=== PATIENT | female | born 1965 | race Caucasian/White ===

== ENCOUNTER 2021-06-29 12:58 | Outpatient (RCR) | payer BC, SELFPAY | END 2021-08-03 23:59 | LOC: IMMUN 12:58 | PROVIDERS: PCP Family Medicine; Referring Provider Family Medicine; Visit Provider Family Medicine | DX: Z23 Encounter for immunization (principal) ==

== ENCOUNTER 2022-01-11 16:11 | Outpatient (CLI) | payer BC, SELFPAY ==
--- NOTE | 2022-01-11 16:20 | RAD_ITS ---
STUDY: X-RAY - CERVICAL SPINE REASON FOR EXAM: Female, 56 years old. A lump in throat. TECHNIQUE: 3 view(s) of the cervical spine were obtained. COMPARISON: None FINDINGS: Normal anterior atlantoaxial articulation. Normal odontoid process. Normal cervical lordosis. Mild diffuse uncovertebral and facet sclerosis. Normal disc space heights. The soft tissue structures are unremarkable. RAD/Cerv Spine 2 or 3 Views IMPRESSION: Mild diffuse uncovertebral and facet sclerosis. No osseous or soft tissue abnormality identified. Electronically Signed: Michel Cisneros MD at 9:58 EST ,
[2022-01-11 17:04] LABS: Absolute Lymphocyte Count 3.25 X10^3/uL (0.83-4.51); Basophil# 0.05 X10^3/uL; Basophil% 0.7 % (0-1); Eosinophil# 0.24 X10^3/uL; Eosinophils% 3.4 % (0-5); Hematocrit 44.9 % (37-47); Hemoglobin 14.6 g/dL (12.0-15.0); Lymphocyte # 3.25 X10^3/ul (0.83-4.51); Lymphocyte % 45.6 % (19-41); Mean Corp Hgb Conc 32.5 g/dL (32-36); Mean Corpuscular Hgb 31.3 pg (27.0-32.0); Mean Corpuscular Volume 96.1 fL (81-99); Mean Platelet Vol. 11.5 fl (6.2-12.0); Monocyte% 8.4 % (0-10); NRBC Flagged by Analyzer 0 % (0-5); Neutrophil # 2.96 X10^3/uL (2.7-7.7); Neutrophil % 41.6 % (47-70); Platelet Count 227 K/mm3 (150-450); RBC Distribution Width CV 13.2 % (11.6-14.6); RBC Distribution Width SD 46.4 fl (35.1-43.9); Red Blood Count 4.67 M/mm3 (4.2-5.4); White Blood Count 7.1 K/mm3 (4.4-11.0)
[2022-01-11 17:33] LABS: Erythrocyte Sedimentation Rate 11 mm/hr (0-30)
[2022-01-11 18:00] LABS: ALB/GLOB Ratio 0.9 RATIO (0.9-2.4); AST(SGOT) 16 U/L (15-37); Alanine Aminotransfer ALT/SGPT 31 U/L (13-56); Albumin, Serum 3.7 g/dL (3.2-5.0); Alkaline Phosphatase 217 U/L (45-117); Anion Gap 3 (5-15); BUN 14 mg/dL (7-18); BUN/Creat Ratio 15.8 RATIO (10-20); CRP 3.47 mg/L (0.0-3.0); Calcium,Total 9.1 mg/dL (8.5-10.1); Chloride 106 mmol/L (98-107); Creatinine, Serum 0.89 mg/dL (0.55-1.02); EST Glomerular Filtration Rate 70 mL/min (>60); Est Glom Filt Rate - Afr Amer 84 mL/min (>60); Globulin 4.3 g/dL (2.2-4.2); Glucose 83 mg/dL (74-106); Potassium 3.6 mmol/L (3.5-5.1); Sodium Level 139 mmol/L (136-145)
[2022-01-14 17:07] LABS: Endomysial Antibody IgA Negative (Negative); Immunoglobulin A 457 mg/dL (87-352)
[2022-01-14 20:55] LABS: Angiotensin Convert Enzyme 84 U/L (14-82); t-Transglutaminase IgA <2 U/mL (0-3)
[2022-01-18 03:07] LABS: Anti-Centromere B Ab <0.2 AI (0.0-0.9); Anti-Chromatin <0.2 AI (0.0-0.9); Anti-Jo <0.2 AI (0.0-0.9); Anti-Scleroderma-70 AB <0.2 AI (0.0-0.9); Beef <0.10 kU/L (Class 0); Corn <0.10 kU/L (Class 0); Egg, Whole <0.10 kU/L (Class 0); Milk (Cow) <0.10 kU/L (Class 0); Peanut <0.10 kU/L (Class 0); Pork <0.10 kU/L (Class 0); RNP Ab 0.6 AI (0.0-0.9); SJOGREN'S Anti-SS-A test < 0.2 AI (0.0-0.9); SJOGREN'S Anti-SS-B test < 0.2 AI (0.0-0.9); Smith Ab <0.2 AI (0.0-0.9); Soybean <0.10 kU/L (Class 0); Wheat <0.10 kU/L (Class 0)
[2022-01-18 12:54] LABS: Anti-dsDNA Ab <1 IU/mL (0-9); Chocolate <0.10 kU/L (Class 0)
== END 2022-01-11 23:59 | disposition home or self-care (01) ==
LOC: RAD 16:15
PROVIDERS: PCP Family Medicine; Referring Provider Nurse Practitioner Adult Health; Visit Provider Nurse Practitioner Adult Health
DX: R07.89 Other chest pain (principal)
CPT/HCPCS: 36415; 72040; 80053; 82164; 82784; 83516; 85025; 85652; 86003; 86005; 86140; 86225; 86235; 86255

== ENCOUNTER 2022-01-24 13:31 | Outpatient (CLI) | payer BC, SELFPAY ==
--- NOTE | 2022-01-24 13:40 | RAD_ITS ---
STUDY: CHEST SERIES--PA AND LATERAL VIEWS OF 1346 HOURS ON 01/24/2022 REASON FOR EXAM: Female, 56 years old. chest pressure TECHNIQUE: A standard 2 view chest x-ray series was performed per protocol. COMPARISON: None. FINDINGS: Mild demineralization. No cardiomegaly. No pulmonary infiltrates, atelectasis, effusion, or pulmonary mass lesions. Normal-appearing thoracic aorta. Normal soft tissues. RAD/Chest PA and Lateral IMPRESSION: No active cardiopulmonary disease. Electronically Signed: Oleg Ramos MD at 22:41 EDT ,
== END 2022-01-24 23:59 | disposition home or self-care (01) ==
PROVIDERS: PCP Family Medicine; Referring Provider Nurse Practitioner Adult Health; Visit Provider Nurse Practitioner Adult Health
DX: R07.89 Other chest pain (principal)
CPT/HCPCS: 71046

== ENCOUNTER 2022-01-25 10:05 | Outpatient (CLI) | payer BC, SELFPAY ==
[2022-01-25 11:30] LABS: GGTP 13 U/L (5-55)
== END 2022-01-25 23:59 | disposition home or self-care (01) ==
LOC: LAB 10:06
PROVIDERS: PCP Family Medicine; Referring Provider Nurse Practitioner Adult Health; Visit Provider Nurse Practitioner Adult Health
DX: R74.8 Abnormal levels of other serum enzymes (principal)
CPT/HCPCS: 36415; 82977

== ENCOUNTER 2022-02-07 16:00 | Outpatient (CLI) | payer BC, SELFPAY ==
[2022-02-07 16:45] LABS: D-Dimer Quantitative (DVT/PE) 0.61 FEU/ug/m (0.27-0.49)
== END 2022-02-07 23:59 | disposition home or self-care (01) ==
LOC: LAB 16:00
PROVIDERS: PCP Family Medicine; Referring Provider Nurse Practitioner Adult Health; Visit Provider Nurse Practitioner Adult Health
DX: R07.89 Other chest pain (principal)
CPT/HCPCS: 36415; 85379

== ENCOUNTER 2022-02-07 17:40 | Emergency (ER) | payer BC, SELFPAY ==
[2022-02-07 17:41] VITALS: BP 164/99; PULSE 88; RESP 15; TEMP 35.9; O2SAT 98; BMI 32.3
--- NOTE | 2022-02-07 18:03 | EKG12_ITS ---
Test Reason : ABN LABS Blood Pressure : / mmHG Vent. Rate : 070 BPM Atrial Rate : 070 BPM P-R Int : 194 ms QRS Dur : 072 ms QT Int : 374 ms P-R-T Axes : 068 007 035 degrees QTc Int : 403 ms Normal sinus rhythm Normal ECG Confirmed by EFRAÍN JAY, NISHA ([id number]), editorial intern ISABELL ALEXIS ([id number]) on 02/13/2022 11:02:16 AM Referred By: MEGAN Confirmed By:NISHA KENNY MD
--- NOTE | 2022-02-07 18:04 | EX.ED.DYSGE1 ---
HPI History of Present Illness Chief Complaint: Abn Labs Detail of Chief Complaint: Elevated D-dimer Informant: patient Narrative Narrative: PatientPatient presents to the emergency department after blood test was done that showed an elevated D-dimer. Patient tells me she has been having chest pain for years that seems that kind of started the epigastric region radiate up into her neck and sometimes feels like there are some stuck in her throat. Patient was being seen by GI and they did a D-dimer which was elevated and they referred her to the ER. Patient has no history of recent travel or surgery or long periods of immobilization. Patient states that in the 1980s she had a DVT in the calf that was related they thought to her control. Patient states that her pain in her chest is not exertional she still able to exercise. She denies any fever or cough or recent illness. Prior similar symptoms: No PFSH PFSH Medical History (Updated 02/07/22 @ 20:[address] 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 Alkaline phosphatase elevation Chest wall pain Dyspepsia Elevated liver enzymes GERD (gastroesophageal reflux disease) GERD (gastroesophageal reflux disease) Globus sensation Headache Hypothyroidism Nonalcoholic fatty liver disease Precordial pain Home Medications levothyroxine 137 mcg capsule 137 mcg PO DAILY 01/11/22 [History Last Taken Unknown] omeprazole 40 mg capsule,delayed release 40 mg PO BID 01/11/22 [History Last Taken Unknown] amitriptyline 25 mg tablet 25 mg PO QHS #30 tab 02/07/22 [Rx Last Taken Unknown] Allergy/AdvReac Type Severity Reaction Status Date / Time No Known Allergies Allergy Verified 02/07/22 17:43 Family History (Reviewed 01/11/22 @ 15:08 by Mara Carrillo BEHAVIORAL HEALTH SPECIALIST, BEHAVIORAL HEALTH SPECIALIST-C) Mother Hypertension Father Diabetes Myocardial infarction Leukemia Surgical History Hx of colonoscopy Social History (Reviewed 01/11/22 @ 15:08 by Mara Carrillo BEHAVIORAL HEALTH SPECIALIST, BEHAVIORAL HEALTH SPECIALIST-C) Smoking Status: Never smoker alcohol intake: current alcohol intake frequency: holidays/special occasions only substance use type: does not use what type of physical activity do you participate in: other ROS ROS ED Constitutional Constitutional ED: Reports systems reviewed and no addt'l complaints, except as documented; Denies body ache(s), change in weight or chills Eyes Eyes: Denies acute decrease in peripheral vision, change in vision, double vision or loss of vision ENT ENT ED: Reports none; Denies ear pain, lip swelling, loss taste/smell, neck pain, otalgia or sore throat Cardiovascular Cardiovascular: Reports none and chest pain; Denies abdominal pain, chest pain with activity, leg edema, lightheadedness, palpitations, rapid heart rate or syncope Respiratory/Chest Respiratory/Chest: Reports none; Denies change in mental status, dry cough, dyspnea, hemoptysis, shortness of breath at rest or shortness of breath with exertion Gastrointestinal Gastrointestinal: Reports none; Denies abdominal pain, change in stool character, diarrhea, hematemesis, hematochezia, melena, rectal bleeding or vomiting Genitourinary Genitourinary ED: Reports none; Denies abdominal discomfort, anuria, dysuria, genital pain or polyuria Musculoskeletal Musculoskeletal: Reports none; Denies arthralgias, back pain, difficulty walking, extremity pain, muscle weakness or myalgias Integumentary Reports none; Denies abscess or rash Neurologic Neurologic: Reports none; Denies abnormal gait, confusion, focal weakness, frequent falls, headache(s), loss of vision, numbness, paresthesias, radicular pain, vertigo or weakness Psychiatric Psychiatric: Reports systems reviewed and no addt'l complaints, except as documented and none; Denies behavioral changes, confusion, difficulty concentrating, hallucinations, suicidal ideation, tactile hallucinations or visual hallucinations Endocrine Endocrinology: Denies none, cold intolerance, excessive sweating, fatigue or heat intolerance Hematologic/Lymphatic Hematologic/Lymphatic: Reports none; Denies anemia, easy bleeding or easy bruising Allergic/Immunologic Allergic/Immunologic ED: Denies as per HPI, none, lip swelling, mouth swelling, throat swelling, tongue swelling or hives EXAM Physical Exam Const Vital Signs: 02/07/22 17:41 02/07/22 17:58 02/07/22 19:55 Temperature 96.6 F L Temperature Source Temporal Pulse Rate 88 75 Respiratory Rate 15 18 Respiratory Effort Normal Respiratory Pattern Normal Blood Pressure 164/99 H Blood Pressure Mean 120 Pulse Ox 98 98 Oxygen Delivery Method Room Air Room Air Positive well nourished and well developed General Appearance ED: well developed and NAD HEENT Reports TM's clear and moist mucous membranes normocephalic and atraumatic; Negative for trauma or tenderness Tympanic Membrane ED: Yes TM's clear Eyes PERRL and EOMs intact bilaterally General Eye ED: Negative for pale conjunctiva or scleral icterus Neck no lymphadenopathy, supple and no JVD General: Negative for tenderness Chest Wall inspection of chest normal and palpation of chest normal Chest: Negative for tenderness Resp normal respiratory effort and clear to auscultation bilaterally Effort and Inspection: Negative for respiratory distress or pain with movement Auscultation: Negative for rhonchi, wheezes or diminished lung sounds Cardio regular rate, regular rhythm, S1 normal heart sound, S2 normal heart sound and no murmurs Peripheral Pulses: pulses 2+ throughout GI normal to inspection, nondistended, normoactive bowel sounds, soft to palpation, non-tender, non-distended and no masses Back/Spine no CVA tenderness and no thoracic nor lumbar tenderness Extremity normal to inspection General Extremety ED: Negative for edema General Extremity: Negative for edema Neuro oriented x3, CN's II-XII intact bilaterally, no sensory deficits noted and gait normal Sensorium / Orientation: awake, alert, oriented to person, oriented to place and oriented to time Motor Exam: strength 5/5 throughout and strength abnormal Psych mental status grossly normal Skin no rashes or lesions noted and no wounds MDM MDM MDM Narrative Medical decision making narrative: IV line established on arrival. Patient placed on a nurse monitoring. Lab work-up was unremarkable. Troponin was less than 3. LFTs and lipase were unremarkable other than her alk phos was slightly elevated 207. CTA of the chest was obtained and was negative for PE or dissection. At this point etiology of patient's pain unclear although I suspect a component of anxiety possibly or stress. Patient has had ongoing pain for years. Patient advised to follow-up with her primary care physician within next 3 to 5 days. She is to return if worsening pain, increasing shortness of breath, or condition should worsen anyway. Lab Data Labs: Laboratory Results - last 24 hr 02/07/22 02/07/22 02/07/22 17:55 17:55 17:55 WBC 7.4 RBC 4.70 Hgb 14.9 Hct 45.0 MCV 95.7 MCH 31.7 MCHC 33.1 RDW Std Deviation 46.4 H RDW Coeff of Jacque 13.1 Plt Count 228 MPV 11.4 Immature Gran % (Auto) 0.100 Neut % (Auto) 41.4 L Lymph % (Auto) 47.8 H [place] % (Auto) 8.2 Eos % (Auto) 2.0 Baso % (Auto) 0.5 Absolute Neuts (auto) 3.1 Absolute Lymphs (auto) 3.56 Nucleated RBC % 0 Sodium 140 Potassium 3.6 Chloride 110 H Carbon Dioxide 28.0 Anion Gap 2 L BUN 14 Creatinine 0.99 Estim Creat Clear Calc 59.40 Est GFR (MDRD) Af Amer 75 Est GFR (MDRD) Non-Af 62 BUN/Creatinine Ratio 14.2 Glucose 83 Calcium 9.1 Total Bilirubin 0.60 Direct Bilirubin 0.13 AST 13 L ALT 28 Alkaline Phosphatase 207 H Troponin I High Sens < 3 L Total Protein 7.6 Albumin 3.5 Globulin 4.1 Lipase 151 Radiography Diagnostic Testing: Clinical Impression(s) from Imaging Studies Chest X-Ray 02/07/22 18:13 IMPRESSION: Normal x-ray examination of the chest. Electronically Signed: Julio Combs MD at 18:25 EDT , Chest CTA 02/07/22 18:39 IMPRESSION: Minor atelectasis within the dependent portion of lungs otherwise normal CTA chest examination, without a demonstrated pulmonary embolism or arterial dissection. Electronically Signed: Julio Combs MD at 19:56 EDT , EKG Initial EKG: Attestation: I personally reviewed and interpreted this EKG as follows: Comments: Sinus rhythm with a rate of 70 bpm with no acute ST segment changes Discharge Plan Triage Chief Complaint: Abn Labs ED Provider: Aiden Blake Dx/Rx/DC Orders Clinical Impression: Chest pain Instructions: ED Chest Pain, Uncertain Cause Prescriptions: No Action levothyroxine 137 mcg capsule 137 mcg PO DAILY RF: 0 omeprazole 40 mg capsule,delayed release(DR/EC) 40 mg PO BID RF: 0 amitriptyline 25 mg tablet 25 mg PO QHS Qty: 30 RF: 1 Primary Care Provider: Devaughn Nyoola Referrals: Devaughn Noyola MD [Primary Care Provider] - 5-7 Days Disposition Disposition: Home, Self Care
--- NOTE | 2022-02-07 18:13 | RAD_ITS ---
STUDY: X-RAY CHEST REASON FOR EXAM: Female, 56 years old. chest pain TECHNIQUE: AP portable COMPARISON: 01/24/2022. FINDINGS: The lungs are clear and expanded. There is no demonstrated pleural abnormality. Normal size heart. Normal mediastinum and gerald. Normal visualized pulmonary arteries. Normal visualized aortic arch and descending thoracic aorta. Normal visualized thoracic spine. Normal visualized ribs, clavicles, and shoulders. There is no demonstrated abnormality of the visualized soft tissue structures of the upper abdomen. No significant change since prior exam RAD/Chest 1 View (Portable) IMPRESSION: Normal x-ray examination of the chest. Electronically Signed: Julio Combs MD at 18:25 EDT ,
[2022-02-07 18:16] LABS: Absolute Lymphocyte Count 3.56 X10^3/uL (0.83-4.51); Absolute Neutrophil Count 3.1 X10^3/uL (2.0-7.7); Basophil# 0.04 X10^3/uL; Basophil% 0.5 % (0-1); Eosinophil# 0.15 X10^3/uL; Hemoglobin 14.9 g/dL (12.0-15.0); Lymphocyte # 3.56 X10^3/ul (0.83-4.51); Lymphocyte % 47.8 % (19-41); Mean Corp Hgb Conc 33.1 g/dL (32-36); Mean Corpuscular Hgb 31.7 pg (27.0-32.0); Mean Corpuscular Volume 95.7 fL (81-99); Mean Platelet Vol. 11.4 fl (6.2-12.0); Monocyte# 0.61 X10^3/uL; Monocyte% 8.2 % (0-10); NRBC Flagged by Analyzer 0 % (0-5); Neutrophil # 3.07 X10^3/uL (2.7-7.7); Neutrophil % 41.4 % (47-70); Platelet Count 228 K/mm3 (150-450); RBC Distribution Width CV 13.1 % (11.6-14.6); RBC Distribution Width SD 46.4 fl (35.1-43.9); White Blood Count 7.4 K/mm3 (4.4-11.0)
[2022-02-07] MEDS: 0.9% Normal Saline 1,000 ML 150 ML IV (18:21)
[2022-02-07 18:35] LABS: Anion Gap 2 (5-15); BUN 14 mg/dL (7-18); BUN/Creat Ratio 14.2 RATIO (10-20); Calcium,Total 9.1 mg/dL (8.5-10.1); Chloride 110 mmol/L (98-107); Creatinine, Serum 0.99 mg/dL (0.55-1.02); EST Glomerular Filtration Rate 62 mL/min (>60); Est Glom Filt Rate - Afr Amer 75 mL/min (>60); Glucose 83 mg/dL (74-106); Lipase 151 U/L (73-393); Potassium 3.6 mmol/L (3.5-5.1); Sodium Level 140 mmol/L (136-145); Troponin-I HS (w/2H Reflex) < 3 pg/mL (3.0-54.0)
[2022-02-07 18:38] LABS: AST(SGOT) 13 U/L (15-37); Alanine Aminotransfer ALT/SGPT 28 U/L (13-56); Albumin, Serum 3.5 g/dL (3.2-5.0); Alkaline Phosphatase 207 U/L (45-117); Bilirubin, Direct 0.13 mg/dL (0.00-0.30); Globulin 4.1 g/dL (2.2-4.2); Protein, Total 7.6 g/dL (6.4-8.2)
--- NOTE | 2022-02-07 18:39 | CT_ITS ---
STUDY: CTA CHEST REASON FOR EXAM: Female, 56 years old. chest pain, elevated d-dimer RADIATION DOSAGE (If Supplied By Facility): CTDIvol = ( 10.25 ) mGy, DLP = ( 372.56 ) mGycm TECHNIQUE: The examination was performed with the intravenous administration of IV 100mL Isovue-370. Post-processing of the angiographic images was performed, with multiplanar reformation and 3D reconstruction. Individualized dose optimization techniques were used for this CT. COMPARISON: None. FINDINGS: Normal enhancement of the main pulmonary artery and right and left pulmonary arteries. Normal enhancement of the bilateral peripheral pulmonary arteries. There is no demonstrated pulmonary embolism. Normal thoracic aorta and visualized great vessels. There is no demonstrated aortic dissection. Normal heart and pericardium. Normal mediastinum. Normal hilar regions. Normal visualized trachea and bronchi. The lungs are well expanded. Minor atelectasis within the dependent portion of lungs. No focal infiltration or pulmonary nodule Normal pleura. Normal chest wall structures. Normal osseous structures. Normal visualized upper abdomen. CT/CTA Chest W/WO Contrast IMPRESSION: Minor atelectasis within the dependent portion of lungs otherwise normal CTA chest examination, without a demonstrated pulmonary embolism or arterial dissection. Electronically Signed: Julio Combs MD at 19:56 EDT ,
[2022-02-07 19:55] VITALS: PULSE 75; RESP 18; O2SAT 98
[2022-02-07 20:14] LABS: Reflex Troponin-HS? (from REC) Y
[2022-02-07 20:35] VITALS: BP 133/93; PULSE 72; RESP 16; O2SAT 98
[2022-02-07 21:02] LABS: Troponin-I HS < 3 pg/mL (3.0-54.0)
== END 2022-02-07 20:42 | disposition home or self-care (01) ==
PROVIDERS: Emergency Provider Emergency Medicine; PCP Family Medicine; Visit Provider Emergency Medicine
DX: R07.9 Chest pain, unspecified (principal); K21.9 Gastro-esophageal reflux disease without esophagitis; E03.9 Hypothyroidism, unspecified; Z79.899 Other long term (current) drug therapy; K76.0 Fatty (change of) liver, not elsewhere classified; Z86.718 Personal history of other venous thrombosis and embolism
CPT/HCPCS: 71045; 71275; 80048; 80076; 83690; 84484; 85025; 93005; 96360; 96361; 99285; J7030; Q9967; A4216

== ENCOUNTER → 2024-05-05 | Outpatient (CLI) | payer BC, SELFPAY ==
--- NOTE | 2024-05-05 07:07 | US_ITS ---
STUDY: ABDOMINAL ULTRASOUND - ELASTOGRAPHY REASON FOR VISIT: Female, 59 years old. Fatty infiltration of the liver. TECHNIQUE: Liver stiffness measurements were obtained on a Cassatt RS 85 ultrasound machine using a CA 1-7 probe following the U guidelines. 3 measurements were obtained using a 2-D-SWE method. TheIQR/M was 12% suggesting a quality data set. TECHNICAL QUALITY: Adequate. COMPARISON: FINDINGS: Liver: There is no demonstrated mass lesion. Median liver stiffness measured 5.4 kPa. Abdomen: There is no demonstrated mass lesion. US/ABD Limited w/ Elastography IMPRESSION: Liver stiffness measures 5.4 kPa compatible with F0-F1 Metavir score. Electronically Signed: Jeronimo Leyva MD at 16:14 EDT ,
== END | disposition home or self-care (01) ==
PROVIDERS: PCP Family Medicine; Referring Provider Internal Medicine Gastroenterology; Visit Provider Internal Medicine Gastroenterology
DX: K76.0 Fatty (change of) liver, not elsewhere classified (principal)
CPT/HCPCS: 76705; 76981

== ENCOUNTER 2025-06-07 11:50 | Day surgery (SDC) | payer BC, SELFPAY ==
[2025-06-07] VITALS (7 sets, daily range): BP systolic 110–140; BP diastolic 68–78; PULSE 65–73; RESP 12–18; TEMP 36.5–37.2; O2SAT 99–100; BMI 41.8
[2025-06-07] MEDS: Lactated Ringers 1,000 ML 15 ML IV (12:16)
--- NOTE | 2025-06-07 12:57 | PCM.HP.STD ---
HPI - General General Date of Admission: 06/07/25 Date of Service: 06/07/25 Chief Complaint: Screening colonoscopy HPI Narrative YAMILA RETANA, is a 60 F who presents today for screening colonoscopy. She had a colonoscopy approximately 10 years ago. That was normal. She is not have any abdominal pain. She does have a past medical history of gastroesophageal reflux disease, hypothyroidism. Both are controlled with medication. 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 GERD (gastroesophageal reflux disease) Home Medications ?Medication ?Instructions ?Recorded ?Last Taken ?Type amitriptyline 25 mg tablet 25 mg PO QHS #90 tabs 04/19/25 Unknown Rx cholecalciferol (vitamin D3) 25 25 mcg PO DAILY 05/31/25 Unknown History mcg (1,000 unit) capsule (Vitamin D3) levothyroxine 125 mcg tablet 125 mcg PO DAILY 05/31/25 06/07/25 06:00 History omeprazole 20 mg capsule,delayed 20 mg PO DAILY 05/31/25 Unknown History release vitamin E 268 mg (400 unit) capsule 268 mg PO DAILY 05/31/25 Unknown History Allergy/AdvReac Type Severity Reaction Status Date / Time No Known Allergies Allergy Verified 06/07/25 12:15 Family History Mother Hypertension Father Diabetes Myocardial infarction Leukemia Surgical History Hx of colonoscopy Social History Smoking Status: Never smoker alcohol intake: current alcohol intake frequency: holidays/special occasions only substance use type: does not use what type of physical activity do you participate in: other Vital Signs Vital Signs Vital Signs: 06/07/25 12:17 06/07/25 12:17 Temperature 98.9 F Temperature Source Temporal Pulse Rate 73 Respiratory Rate 16 Respiratory Pattern Normal Blood Pressure 140/76 H Blood Pressure Mean 97 Blood Pressure Source Monitor Blood Pressure Position Semi-Fowlers Blood Pressure Location Left Arm Pulse Ox 100 Oxygen Delivery Method Room Air Weight Weight: 258 lb 13.163 oz Body Mass Index (BMI) 41.8 Physical Exam Const alert, oriented x3, no apparent distress and healthy appearing General Appearance: cooperative GI normal to inspection, nondistended, normoactive bowel sounds, soft to palpation, non-tender and non-distended Percussion: normal to percussion Rectal Exam: deferred Assessment & Plan Assessment/Plan (1) Encounter for screening colonoscopy: PLAN: She was explained alternatives, risk and benefits going understanding bleeding, infection, sepsis, perforation, need for emergent . She will have an ASA of 3.
--- NOTE | 2025-06-07 13:00 | COLBX_PTH ---
PATIENT: YAMILA RETANA LOC: EN U#:[id number] AGE/SX: 60/F ROOM: RE06/07/[address]: Dr. Duane Jean DO : 1965 BED: DIS: 06/07/2025 SPEC #: [id number] RECD: 06/07/25 15:32 STATUS: HALINA REDomenico #: [id number] MARIA ESTHER: 06/07/25 13:[address]: Duane Jean DEPT: SURGICAL PATHOLOGY RECD BY: Edmar De La Torre ENTERED: 06/07/25 15:54 SP TYPE: COLON BX OTHR DR: Dr. Devaughn Noyola MD Tissues: A - SPLENIC FLEXURE B - Sigmoid colon biopsy Procedures: Surgery Specimen Level IV HEADER OPERATION: Colonoscopy with polypectomy PRE-OP DIAGNOSIS: Encounter for screening colonoscopy TISSUE SUBMITTED: A- Splenic flexure polyp, B- Sigmoid polyp MICROSCOPIC DIAGNOSIS A. Splenic flexure, polyp, biopsy: - Tubular adenoma. B. Sigmoid colon, polyp, biopsy: - Tubular adenoma. MICROSCOPIC DESCRIPTION Slides are reviewed. GROSS DESCRIPTION A. Received in fixative is one container labeled with the patient's name and designated Splenic flexure polyp. The specimen consists of multiple irregular fragments of light grace soft tissue that in aggregate measure 0.6 x 0.5 x 0.1 cm. The specimen is totally submitted in one cassette. B. Received in fixative is one container labeled with the patient's name and designated Sigmoid polyp. The specimen consists of four irregular fragments of light grace soft tissue that measures 0.1 to 0.4 cm. The specimen is totally submitted in one cassette. [place] 06/07/2025 CPT:98730e9
--- NOTE | 2025-06-07 13:31 | PRE.ANES_ITS ---
ASA Classification* ASA Classification ASA Classification: 2 Assessment & Plan Anesthesia* Anesthesia Assessment Anesthesia Assessment: Discussed sedation and/or anesthesia options, risks, benefits, and alternatives with patient/parents/legal guardian/POA. Questions invited. The patient/parents/legal guardian/POA seems to understand and agrees to proceed with anesthesia plan. Reviewed the physical assessment, medical history, allergy history and patient home medications list prior to surgery/procedure/anesthetic and documented any changes. Performed airway and anesthesia risk assessments. Anesthesia Type Anesthesia Type: MAC Anesthesia Focused Assessment* Temperature: 98.9 F Pulse Rate: 73 Blood Pressure: 140/76 Respiratory Rate: 16 Pulse Ox: 100 Airway Assessment Mouth opens: >3 cm Mallampati Score: II Labs Anesthesia Preop lab: CBC WBC 7.4 K/mm3 (4.4-11.0) 02/07/22 17:55 02/07/22 RBC 4.70 M/mm3 (4.2-5.4) 02/07/22 17:55 02/07/22 Hgb 14.9 g/dL (12.0-15.0) 02/07/22 17:55 02/07/22 Hct 45.0 % (37-47) 02/07/22 17:55 02/07/22 Plt Count 228 K/mm3 (150-450) 02/07/22 17:55 02/07/22 CHEMISTRY Potassium 3.6 mmol/L (3.5-5.1) 02/07/22 17:55 02/07/22 Sodium 140 mmol/L (136-145) 02/07/22 17:55 02/07/22 BUN 14 mg/dL (7-18) 02/07/22 17:55 02/07/22 Creatinine 0.99 mg/dL (0.55-1.02) 02/07/22 17:55 02/07/22 Glucose 83 mg/dL (74-106) 02/07/22 17:55 02/07/22 COAG Pre-Assessment Diagnosis/Proposed Procedure Planned Operative Procedure(s): COLONOSCOPY Anesthesia History Anesthesia History - talent development coordinator: Anesthesia History - talent development coordinator Hx Hospitalization No 05/31/25 15:27 Any Problems With Anesthesia No 05/31/25 15:27 Cholinesterase deficiency No 05/31/25 15:27 You/Your Family Experience No 05/31/25 15:27 fever (hyperthermia) with Relationship Recent Exposure to Contagious No 06/07/25 12:17 Disease Does patient have nerve No 05/31/25 15:27 stimulator Patient instructed to have device shut off --Does patient have Pacemaker No 06/07/25 12:17 or ICD? When Was Last Pacemaker Check QUESTION #4 FULL TEXT: You/Your Family Experience fever (hyperthermia) with Anesthesia Last Oral Intake Last Oral intake: Last Oral Intake NPO since 10:00 06/07/25 12:17 Meds taken in AM with sips of Yes 06/07/25 12:17 water? Meds patient instructed to take am of surgery PONV PONV - talent development coordinator: PONV - talent development coordinator Female Yes 05/31/25 15:27 HX of Motion Sickness No 05/31/25 15:27 HX of N/V After Surgery No 05/31/25 15:27 Non-Smoker Yes 05/31/25 15:27 Duration of Surgery greater No 05/31/25 15:27 than 60 minutes Number of Risk Factors 2 05/31/25 15:27 PONV Score Moderate Risk 05/31/25 15:27 Height & Weight Height & Weight: Anesthesia: Height & Weight Height 5 ft 6 in 06/07/25 12:17 Weight: 117.4 kg 06/07/25 12:17 Body Mass Index (BMI) 41.8 06/07/25 12:17 Respiratory Assessment Respiratory Assessment - talent development coordinator: Respiratory Tract Infection Hx - talent development coordinator Hx Respiratory Tract Infection No 05/31/25 15:27 STOP Sleep Apnea STOP Sleep Apnea - talent development coordinator: STOP Sleep Apnea - talent development coordinator Hx Hypertension No 05/31/25 15:27 Hx Sleep Apnea No 05/31/25 15:27 CPAP BIPAP Do you snore loudly (louder No 05/31/25 15:27 than talking or can be heard Do you often feel tired/ No 05/31/25 15:27 fatigued/ sleepy during daytime? Has anyone observed you stop No 05/31/25 15:27 breathing during sleep? STOP Results Negative 05/31/25 15:27 QUESTION #5 FULL TEXT : Do you snore loudly (louder than talking or can be heard through closed doors)? Tobacco Use History Tobacco Use History - talent development coordinator: Tobacco Use History - talent development coordinator Tobacco Use Smoking Status Never smoker 05/31/25 15:27 Hx Tobacco Use No 05/31/25 15:27 Years Smoking Packs Smoked per Day Smoking Cessation Date was within the last 15 years Hx Smoking Cessation Date Hx Smoking Cessation Counseling Hematologic Medial History Hematologic Hx - talent development coordinator: Hematologic Medical Hx - manager imaging Hx of Blood Transfusion No 05/31/25 15:27 Hx of Transfusion in last 3 No 05/31/25 15:27 Months Date of Last Transfusion (if within last 3 months) Ever experience any problems No 05/31/25 15:27 with transfusion(s)? Specify any problems Hx of Preganancy in last 3 No 05/31/25 15:27 Months Nurse Filling Out Transfusion VCHRISTIN 05/31/25 15:27 & Questions: Date: 05/31/25 05/31/25 15:27 Time: 15:28 05/31/25 15:27 Patient unable to answer at this time (ie. confused, unrespo /Reproduction History /Reproductive History - talent development coordinator: /Reproductive Hx- talent development coordinator Hx Now No 05/31/25 15:27 Gestational Age (in weeks): EDC: Hx Hx Para Hx Section SAB No 05/31/25 15:27 Active Medications Active Medications: Current Medications Generic Name Dose Route Start Last Admin Trade Name Freq PRN Reason Stop Dose Admin Lactated Ringer's 1,000 mls @ 15 mls/hr 06/07/25 12:15 06/07/25 12:16 IV 15 mls/hr .Q48H RAFITA Administration PFSH Medical History Thyroid disease DVT (deep venous thrombosis) Migraine headache Gastric reflux Non-smoker Alkaline phosphatase elevation Headache Precordial pain Nonalcoholic fatty liver disease Hypothyroidism Globus sensation Elevated liver enzymes Dyspepsia Chest wall pain 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 GERD (gastroesophageal reflux disease) Home Medications ?Medication ?Instructions ?Recorded ?Last Taken ?Type amitriptyline 25 mg tablet 25 mg PO QHS #90 tabs 04/19 Unknown Rx cholecalciferol (vitamin D3) 25 25 mcg PO DAILY Unknown History mcg (1,000 unit) capsule (Vitamin D3) levothyroxine 125 mcg tablet 125 mcg PO DAILY 05/31/25 06/07/25 06:00 History omeprazole 20 mg capsule,delayed 20 mg PO DAILY Unknown History release vitamin E 268 mg (400 unit) capsule 268 mg PO DAILY Unknown History Allergy/AdvReac Type Severity Reaction Status Date / Time No Known Allergies Allergy Verified 06/07/25 12:15 Family History Mother Hypertension Father Diabetes Myocardial infarction Leukemia Surgical History Hx of colonoscopy Social History Smoking Status: Never smoker alcohol intake: current alcohol intake frequency: holidays/special occasions only substance use type: does not use what type of physical activity do you participate in: other Review of Systems (Anesthesia) ROS Narrative System reviewed and no additional complaints, except as documented.
[2025-06-07] MEDS: Lactated Ringers 500 ML IV (13:38)
--- NOTE | 2025-06-07 14:04 | OP.COLON_ITS ---
Patient Name: Farheen Harris Procedure Date: 06/07/2025 12:59 PM Date of : 1965 Age: 60 Procedure: Colonoscopy Indications: Screening for colorectal malignant neoplasm Providers: Duane Jean DO Referring MD: Devaughn Noyola Medicines: Monitored Anesthesia Care Patient Profile: This is a 60 year old female. Refer to note in patient chart for documentation of history and physical. Last Colonoscopy: more than 10 years ago. Complications: No immediate complications. Procedure: Pre-Anesthesia Assessment: - Prior to the procedure, a History and Physical was performed, and patient medications and allergies were reviewed. The patient is competent. The risks and benefits of the procedure and the sedation options and risks were discussed with the patient. All questions were answered and informed consent was obtained. Patient identification and proposed procedure were verified by the physician in the pre-procedure area. Mental Status Examination: alert and oriented. Airway Examination: normal oropharyngeal airway and neck mobility. Respiratory Examination: clear to auscultation. CV Examination: normal. Prophylactic Antibiotics: The patient does not require prophylactic antibiotics. Prior Anticoagulants: The patient has taken no anticoagulant or antiplatelet agents. ASA Grade Assessment: II - A patient with mild systemic disease. After reviewing the risks and benefits, the patient was deemed in satisfactory condition to undergo the procedure. The anesthesia plan was to use monitored anesthesia care (MAC). Immediately prior to administration of medications, the patient was re-assessed for adequacy to receive sedatives. The heart rate, respiratory rate, oxygen saturations, blood pressure, adequacy of pulmonary ventilation, and response to care were monitored throughout the procedure. The physical status of the patient was re-assessed after the procedure. After I obtained informed consent, the scope was passed under direct vision. Throughout the procedure, the patient's blood pressure, pulse, and oxygen saturations were monitored continuously. The colonoscope was introduced through the anus and advanced to the cecum, identified by appendiceal orifice and ileocecal valve. The colonoscopy was performed without difficulty. The patient tolerated the procedure well. The quality of the bowel preparation was adequate. The ileocecal valve, appendiceal orifice, and rectum were photographed. Scope In: 1:45:31 PM Scope Withdrawal Time 0 hours 12 minutes 29 seconds Scope Out: 1:59:25 PM Total Procedure Duration Time 0 hours 13 minutes 54 seconds Findings: The perianal and digital rectal examinations were normal. Two sessile polyps were found in the recto-sigmoid colon and splenic flexure. The polyps were 8 mm in size. These polyps were removed with a hot snare. Resection and retrieval were complete. Verification of patient identification for the specimen was done. Estimated blood loss was minimal. Impression: - Two 8 mm polyps at the recto-sigmoid colon and at the splenic flexure, removed with a hot snare. Resected and retrieved. Recommendation: - Repeat colonoscopy in 5 years for surveillance. - Continue present medications. Procedure Code(s): --- Professional --- 11431, Colonoscopy, flexible; with removal of tumor(s), polyp(s), or other lesion(s) by snare technique CPT copyright 2021 [employer]. All rights reserved. The codes documented in this report are preliminary and upon plaster tender review may be revised to meet current compliance requirements. Duane Jean DO 06/07/2025 2:04:00 PM This report has been signed electronically. Number of Addenda: 0 Note Initiated On: 06/07/2025 12:59 PM
--- NOTE | 2025-06-07 14:04 | OP.PROVAT_ITS ---
06/07/2025 Devaughn Noyola Re : Colonoscopy procedure for Farheen Harris Dear aJzmín This procedure was performed on Saturday, June 07, 2025. My impressions and recommendations are as follows: Impressions : - Two 8 mm polyps at the recto-sigmoid colon and at the splenic flexure, removed with a hot snare. Resected and retrieved. Recommendations : - Repeat colonoscopy in 5 years for surveillance. - Continue present medications. My findings are described in the full procedure note, which is enclosed. If I can be of further assistance, please feel free to contact me at . Sincerely, Duane Jean, 06/07/2025 2:04:00 PM This report has been signed electronically.
--- NOTE | 2025-06-07 14:10 | PCM.POST.ANE ---
Anesthesia: Postop Eval I Current Vital Signs Temperature: 97.7 F Pulse Rate: 69 Blood Pressure: 110/68 Respiratory Rate: 16 Pulse Ox: 99 Assessment Airway patent: Yes Spontaneous unlabored respirations: Yes nausea: No Vomiting: No Anesthesia Complication: No Fluid Hydration Crystalloid volume administer (ml): 500 Total IV fluid infused: 500 Progress Note Anesthesia document: Postop Eval 1 completed: Yes
--- NOTE | 2025-06-07 20:15 | POSTOPAN2_ITS ---
Anesthesia Postop Eval I Sum Postop Eval Completion status Anesthesia document: Postop Eval 1 completed: Yes Anesthesia Postop Eval I Summary Anesthesia Postop Eval I Summary: Anesthesia Postop Eval I: Assessment Summary Airway patent Yes 06/07/25 14:10 [email or web address] Spontaneous unlabored Yes 06/07/25 14:10 [email or web address] respirations Mental status nausea No 06/07/25 14:10 [email or web address] Vomiting No 06/07/25 14:10 [email or web address] Anesthesia Postop Eval I: Fluid Summary Crystalloid volume administer 500 06/07/25 14:10 [email or web address] (ml) Colloids volume administered ( ml) Blood Product volume administered (ml) Total IV fluid infused 500 06/07/25 14:10 [email or web address] Anesthesia Postop Eval I: Summary Notes Anesthesia Complication No 06/07/25 14:10 [email or web address] Anesthesia Complication Comment: Post-operative progress note Anesthesia: Postop Eval II Evaluation Mental status: Awake and Calm Pain Level: 1 nausea: No Vomiting: No Complications Anesthesia Complication: No
--- NOTE | 2025-06-07 20:15 | PCM.POSTANE2 ---
Anesthesia Postop Eval I Sum Postop Eval Completion status Anesthesia document: Postop Eval 1 completed: Yes Anesthesia Postop Eval I Summary Anesthesia Postop Eval I Summary: Anesthesia Postop Eval I: Assessment Summary Airway patent Yes 06/07/25 14:10 [email or web address] Spontaneous unlabored Yes 06/07/25 14:10 [email or web address] respirations Mental status nausea No 06/07/25 14:10 [email or web address] Vomiting No 06/07/25 14:10 [email or web address] Anesthesia Postop Eval I: Fluid Summary Crystalloid volume administer 500 06/07/25 14:10 [email or web address] (ml) Colloids volume administered ( ml) Blood Product volume administered (ml) Total IV fluid infused 500 06/07/25 14:10 [email or web address] Anesthesia Postop Eval I: Summary Notes Anesthesia Complication No 06/07/25 14:10 [email or web address] Anesthesia Complication Comment: Post-operative progress note Anesthesia: Postop Eval II Evaluation Mental status: Awake and Calm Pain Level: 1 nausea: No Vomiting: No Complications Anesthesia Complication: No
== END 2025-06-07 14:56 | disposition home or self-care (01) ==
LOC: EN 11:52 → AC 11:53
PROVIDERS: PCP Family Medicine; Referring Provider Family Medicine; Visit Provider Internal Medicine Gastroenterology
PROC: 0DJD8ZZ Inspection of Lower Intestinal Tract, Via Natural or Artificial Opening Endoscopic (ICD-10-PCS; CPT 45378; principal; 2025-06-07 12:55)
DX: Z12.11 Encounter for screening for malignant neoplasm of colon (principal); K21.9 Gastro-esophageal reflux disease without esophagitis; Z86.718 Personal history of other venous thrombosis and embolism; E03.9 Hypothyroidism, unspecified; D12.3 Benign neoplasm of transverse colon; D12.5 Benign neoplasm of sigmoid colon
CPT/HCPCS: 45385; 88305